=== PATIENT | male | born 1960 | race Caucasian/White ===

== ENCOUNTER 2020-05-25 14:35 | Emergency (ER) | payer BC ==
[2020-05-25] VITALS (13 sets, daily range): BP systolic 139–172; BP diastolic 78–90
[~2020-05-25] VITALS: Ht 175.3 cm; Wt 77.3 kg
[~2020-05-25 14:35] MED LIST: NO HOME MEDS; PANT40TA4 PO
[2020-05-25] MEDS ORDERED: glucagon, human recombinant 1mg kit IV ONE (15:15)
[2020-05-25] MEDS ORDERED: LORazepam 2 mg/ml vial IV ONE (15:15)
[2020-05-25] MEDS ORDERED: LIDOcaine Viscous 15ml cup ONE (17:12)
[2020-05-25] MEDS ORDERED: MIDAZolam 1mg/ml 10ml vial ONE (17:12)
[2020-05-25] MEDS ORDERED: MIDAZolam 5mg/5ml vial ONE (17:12)
[2020-05-25] MEDS ORDERED: fentaNYL/PF 50MCG/1 ML 2ML syringe ONE (17:13)
[2020-05-25] MEDS ORDERED: propofol 10mg/ml 20ml vial IV ONE (18:24)
--- NOTE | 2020-05-25 18:55 | NUR ---
Received from OR via [facility] , accompanied by Anesthesiologist OSVALDO and report given by Anesthesiolgist. 20G PIV IN RIGHT UE. VSS. DENIES PAIN. VSS. SATURATIONS WNL. WILL CONTINUE TO ASSESS. Addendum: 05/25/20 at 1906 by Corby Limon RN, RN Amended: Links added.
[2020-05-25] MEDS ORDERED: ringers solution, lacted 1,000 ML IV SCH (19:01)
[2020-05-25] MEDS ORDERED: morphine 4 MG/ML inj SYRINge IV PRN (19:05)
[2020-05-25] MEDS ORDERED: ondansetron/PF 4mg/2ml inj IV PRN (19:05)
[2020-05-25] MEDS ORDERED: proCHLORperazine 10 MG/2 ml inj IV PRN (19:05)
[2020-05-25] MEDS ORDERED: morphine 2 MG/ML inj. syringe IV PRN (19:05)
[2020-05-25] MEDS ORDERED: meperidine/PF 25mg/ml syringe IV PRN ×3 (19:05)
[2020-05-25] MEDS ORDERED: OMEP-50 PO (19:09)
--- NOTE | 2020-05-25 19:57 | NUR ---
I HAVE REVIEWED D/C INSTRUCTIONS WITH PATIENT AND FAMILY AND THEY HAVE VERBALIZED UNDERSTANDING. PATIENT D/C HOME WITH ALL BELONGINGS AND FAMILY GAVE TRANSPORT HOME. OUT VIA WHEELCHAIR TO PERSONAL VEHICLE WHERE DROVE HIM HOME. Addendum: 05/25/20 at 8 by Corby Limon RN, RN Amended: Links added.
== END 2020-05-25 19:55 | disposition home or self-care (01) ==
LOC: ER 14:35
DX: T18.128A Food in esophagus causing other injury, initial encounter (principal); K20.9 Esophagitis, unspecified; Z79.899 Other long term (current) drug therapy; X58.XXXA Exposure to other specified factors, initial encounter; Y93.89 Activity, other specified; Y92.89 Other specified places as the place of occurrence of the external cause; Y99.8 Other external cause status
CPT/HCPCS: 43247; 71045; 96374; 96375; 99152; 99153; 99285; C1769; C1773; J1610; J2060; J2250; J2704; J3010; J7040; A4620

== ENCOUNTER 2021-07-15 05:47 | Emergency (ER) | payer BC ==
[~2021-07-15] VITALS: Ht 172.7 cm; Wt 77.0 kg
[~2021-07-15 05:47] MED LIST changes: +OMEP-50 PO; -PANT40TA4 PO; +PANT40TA54 PO
[2021-07-15] MEDS ORDERED: LISI20TA28 PO (06:10)
--- NOTE | 2021-07-15 06:13 | NUR ---
bp 223/113, dr. agosto at bedside. to order amlodapine.
[2021-07-15] MEDS ORDERED: metoprolol tartrate 50mg tablet PO ONE ×2 (06:15→07:10)
[2021-07-15] MEDS ORDERED: amLODIPine 5mg tablet PO ONE ×2 (06:15→07:10)
[2021-07-15] MEDS ORDERED: dexamethasone sod phosphate 10mg/ml inj PO STA (06:21)
[2021-07-15 06:27] LABS: BASOPHILS # (AUTO) 0.1 X10'3 (0-0.2); BASOPHILS % (AUTO) 0.9 % (0-1); EOSINOPHILS % (AUTO) 11.8 % (0-6); HEMOGLOBIN 15.7 g/dl (14.0-17.9); LYMPHOCYTES # (AUTO) 2.1 X10'3 (1.1-4.8); LYMPHOCYTES % (AUTO) 24.1 % (21-51); MEAN CORPUSCULAR HEMOGLOBIN 30.4 PG (27.0-31.0); MEAN CORPUSCULAR HGB CONC 33.5 g/dL (33.0-36.5); MEAN CORPUSCULAR VOLUME 90.7 FL (78-98); MEAN PLATELET VOLUME 8.6 FL (7.4-10.4); MONOCYTES # (AUTO) 0.8 X10'3 (0-0.9); MONOCYTES % (AUTO) 9.8 % (2-12); NEUTROPHILS # (AUTO) 4.6 X10'3 (1.8-7.7); NEUTROPHILS % (AUTO) 53.4 % (42-75); PLATELET COUNT 245 X10'3 (140-440); RED BLOOD COUNT 5.18 X10'6 (4.70-6.10); RED CELL DISTRIBUTION WIDTH 13.2 % (11.5-14.5); WHITE BLOOD COUNT 8.6 X10'3 (4.5-11.0)
[2021-07-15] MEDS ORDERED: AMLO5TAB16 PO (06:28)
[2021-07-15 06:42] LABS: ALANINE AMINOTRANSFERASE 38 U/L (12-78); ALBUMIN 3.8 G/DL (3.4-5.0); ALBUMIN/GLOBULIN RATIO 1.2 (1.1-1.5); ALKALINE PHOSPHATASE 103 IU/L (46-116); ANION GAP 13 (8-16); ASPARTATE AMINO TRANSFERASE 28 U/L (10-37); BILIRUBIN,TOTAL 0.6 MG/DL (0.1-1.0); BLOOD UREA NITROGEN 19 MG/DL (7-18); BUN/CREATININE RATIO 18.3 (5.4-32.0); CALCIUM 8.2 MG/DL (8.5-10.1); CHLORIDE 108 MMOL/L (99-107); CREATININE 1.04 MG/DL (0.60-1.10); GLUCOSE 97 MG/DL (70-104); SODIUM 145 MMOL/L (135-145); TOTAL CARBON DIOXIDE 24.3 MMOL/L (24-32); TOTAL PROTEIN 7.1 G/DL (6.4-8.2); eGFR 72 ML/MIN
[2021-07-15 06:43] LABS: POTASSIUM 4.5 MMOL/L (3.5-5.1); TROPONIN I < 0.04 NG/ML (0.0-0.05)
[2021-07-15] MEDS ORDERED: AMOX-101 PO (07:37)
[2021-07-15 07:53] VITALS: BP 184/99
== END 2021-07-15 07:54 | disposition home or self-care (01) ==
LOC: ER 05:48
DX: T78.3XXA Angioneurotic edema, initial encounter (principal); K12.2 Cellulitis and abscess of mouth; J02.9 Acute pharyngitis, unspecified; Z79.2 Long term (current) use of antibiotics; Z79.899 Other long term (current) drug therapy; X58.XXXA Exposure to other specified factors, initial encounter; Y93.89 Activity, other specified; Y92.89 Other specified places as the place of occurrence of the external cause; Y99.8 Other external cause status
CPT/HCPCS: 36415; 80053; 84484; 85025; 87081; 87880; 93005; 99284; J1100

== ENCOUNTER 2021-08-12 09:59 | Emergency (ER) | payer BC ==
[~2021-08-12] VITALS: Ht 172.7 cm; Wt 77.3 kg
[~2021-08-12 09:59] MED LIST changes: +AMLO5TAB16 PO; +AMOX-101 PO; +LISI20TA28 PO; -NO HOME MEDS; -OMEP-50 PO; -PANT40TA54 PO
[2021-08-12] MEDS ORDERED: normal saline 1000ML IV soln IVB ONE (10:40)
[2021-08-12] MEDS ORDERED: pantoprazole 40 MG vial IV ONE (10:40)
[2021-08-12] MEDS ORDERED: ondansetron/PF 4mg/2ml inj IV ONE (10:40)
[2021-08-12] MEDS ORDERED: LORazepam 2 mg/ml vial IV ONE (10:40)
[2021-08-12] MEDS ORDERED: glucagon, human recombinant 1mg kit IV ONE (10:40)
[2021-08-12 11:11] LABS: ALANINE AMINOTRANSFERASE 33 U/L (12-78); ALBUMIN 4.1 G/DL (3.4-5.0); ALBUMIN/GLOBULIN RATIO 1.2 (1.1-1.5); ALKALINE PHOSPHATASE 104 IU/L (46-116); ANION GAP 13 (8-16); ASPARTATE AMINO TRANSFERASE 22 U/L (10-37); BASOPHILS # (AUTO) 0.1 X10'3 (0-0.2); BASOPHILS % (AUTO) 1.2 % (0-1); BILIRUBIN,TOTAL 0.7 MG/DL (0.1-1.0); BLOOD UREA NITROGEN 17 MG/DL (7-18); BUN/CREATININE RATIO 16.2 (5.4-32.0); CALCIUM 8.8 MG/DL (8.5-10.1); CHLORIDE 110 MMOL/L (99-107); CREATININE 1.05 MG/DL (0.60-1.10); EOSINOPHILS # (AUTO) 0.3 X10'3 (0-0.9); EOSINOPHILS % (AUTO) 4.3 % (0-6); GLUCOSE 88 MG/DL (70-104); HEMATOCRIT 49.8 % (42.0-52.0); HEMOGLOBIN 16.4 g/dl (14.0-17.9); LYMPHOCYTES % (AUTO) 13.3 % (21-51); MEAN CORPUSCULAR HEMOGLOBIN 29.8 PG (27.0-31.0); MEAN CORPUSCULAR HGB CONC 32.9 g/dL (33.0-36.5); MEAN CORPUSCULAR VOLUME 90.5 FL (78-98); MEAN PLATELET VOLUME 8.1 FL (7.4-10.4); MONOCYTES # (AUTO) 0.5 X10'3 (0-0.9); NEUTROPHILS # (AUTO) 5.8 X10'3 (1.8-7.7); NEUTROPHILS % (AUTO) 75.2 % (42-75); PLATELET COUNT 325 X10'3 (140-440); POTASSIUM 4.6 MMOL/L (3.5-5.1); RED CELL DISTRIBUTION WIDTH 13.1 % (11.5-14.5); SODIUM 147 MMOL/L (135-145); TOTAL CARBON DIOXIDE 24.1 MMOL/L (24-32); TOTAL PROTEIN 7.5 G/DL (6.4-8.2); WHITE BLOOD COUNT 7.7 X10'3 (4.5-11.0); eGFR 71 ML/MIN
--- NOTE | 2021-08-12 11:21 | NUR ---
PT GIVEN IVF, ATIVAN, GLUCAGON, PROTONIX, AND ZOFRAN. PT GEGE WELL
[2021-08-12 12:00] VITALS: BP 185/79
[2021-08-12] MEDS ORDERED: fentaNYL/PF 50MCG/1 ML 2ML syringe ONE (12:38)
[2021-08-12] MEDS ORDERED: LIDOcaine Viscous 15ml cup ONE (12:39)
[2021-08-12] MEDS ORDERED: MIDAZolam 1 MG/ML 5ML VIAL ONE (12:39)
[2021-08-12 12:58] VITALS: BP 172/86
[2021-08-12 13:08] VITALS: BP 150/86
[2021-08-12 13:18] VITALS: BP 147/77
[2021-08-12 13:28] VITALS: BP 135/72
--- NOTE | 2021-08-12 14:04 | NUR ---
PT BACK FROM GI, INSTRUCTION FOR Q15 VITALS UNTIL DISCHARGE. PT STABLE, A&O X4.
[2021-08-12] MEDS ORDERED: PANT-47 PO (14:06)
[2021-08-12 15:21] VITALS: BP 114/55
== END 2021-08-12 15:36 | disposition home or self-care (01) ==
LOC: ER 09:59
DX: T18.108A Unspecified foreign body in esophagus causing other injury, initial encounter (principal)
CPT/HCPCS: 36415; 43239; 43247; 71045; 80053; 85025; 93005; 96361; 96374; 96375; 99285; C1769; C1773; C9113; J1610; J2060; J2250; J2405; J3010; J7030; J7040; Z7512; 99152; A4620

== ENCOUNTER 2023-03-10 03:28 | Emergency (ER) | payer BC ==
[~2023-03-10] VITALS: Ht 172.7 cm; Wt 73.4 kg
[~2023-03-10 03:28] MED LIST changes: -AMOX-101 PO; +PANT-47 PO
[2023-03-10] MEDS ORDERED: LIDOcaine Viscous 15ml cup MM ONE (04:05)
[2023-03-10] MEDS ORDERED: mag hydrox/Alum hydrox/simeth 30ml oral suspension PO ONE (04:05)
[2023-03-10] MEDS ORDERED: iohexol 300mg/ml 100ml inj. ONE (04:10)
[2023-03-10 04:39] LABS: ALANINE AMINOTRANSFERASE 32 U/L (12-78); ALBUMIN 3.7 G/DL (3.4-5.0); ALBUMIN/GLOBULIN RATIO 1.1 (1.1-1.5); ALKALINE PHOSPHATASE 85 IU/L (46-116); ANION GAP 8 (8-16); ASPARTATE AMINO TRANSFERASE 22 U/L (10-37); BILIRUBIN,TOTAL 0.4 MG/DL (0.1-1.0); BLOOD UREA NITROGEN 22 MG/DL (7-18); BUN/CREATININE RATIO 20.8 (10.0-20.0); CALCIUM 8.8 MG/DL (8.5-10.1); CHLORIDE 107 MMOL/L (99-107); CREATININE 1.06 MG/DL (0.60-1.10); GLUCOSE 101 MG/DL (70-104); LIPASE 90 U/L (73-393); POTASSIUM 4.1 MMOL/L (3.5-5.1); SODIUM 141 MMOL/L (135-145); TOTAL CARBON DIOXIDE 25.8 MMOL/L (24-32); eGFR 70 ML/MIN
[2023-03-10 04:46] LABS: HEMATOCRIT 45.8 % (42.0-52.0); HEMOGLOBIN 15.5 g/dl (14.0-17.9); MEAN CORPUSCULAR HGB CONC 33.8 g/dL (33.0-36.5); MEAN CORPUSCULAR VOLUME 88.7 FL (78-98); MEAN PLATELET VOLUME 8.1 FL (7.4-10.4); PLATELET COUNT 257 X10'3 (140-440); RED BLOOD COUNT 5.17 X10'6 (4.70-6.10); RED CELL DISTRIBUTION WIDTH 13.1 % (11.5-14.5); WHITE BLOOD COUNT 4.8 X10'3 (4.5-11.0)
[2023-03-10 05:04] LABS: TOTAL CELLS COUNTED 100
[2023-03-10 05:05] LABS: PLATELET ESTIMATE NORMAL
[2023-03-10 05:51] VITALS: BP 161/83
[2023-03-10] MEDS ORDERED: SUCR1ORA12 PO (05:52)
[2023-03-10 06:06] LABS: CLARITY,URINE CLEAR (Clear); COLOR,URINE STRAW (Yellow); GLUCOSE, URINE NEGATIVE (Neg); KETONES,URINE NEGATIVE (Neg); LEUKOCYTE ESTERASE ,URINE NEGATIVE (Neg); NITRITES, URINE NEGATIVE (Neg); OCCULT BLOOD,URINE NEGATIVE (Neg); PROTEIN,URINE NEGATIVE (Neg); UROBILINOGEN,URINE 0.2 E.U/dL (0.2-1.0)
[2023-03-10 06:13] LABS: UA COLLECTION TYPE CLN CATCH MIDSTREAM
== END 2023-03-10 06:04 | disposition home or self-care (01) ==
LOC: ER 03:29
DX: E86.0 Dehydration (principal); R10.13 Epigastric pain; I10 Essential (primary) hypertension; K21.9 Gastro-esophageal reflux disease without esophagitis; Z88.1 Allergy status to other antibiotic agents
CPT/HCPCS: 36415; 71045; 74177; 80053; 81003; 83690; 84484; 85007; 85025; 93005; 99285; J3490; Q9967